=== PATIENT | female | born 1935 | race Caucasian/White ===

== ENCOUNTER → 2016-07-27 | Outpatient (CLI) | payer OTHER | LOC: FIMAGING 09:41 | DX: Z12.31 Encounter for screening mammogram for malignant neoplasm of breast (principal); Z80.3 Family history of malignant neoplasm of breast | CPT/HCPCS: G0202 ==

== ENCOUNTER 2016-08-21 14:34 | Emergency (ER) | payer OTHER ==
[2016-08-21 14:43] VITALS: RESP 18
[2016-08-21] MEDS ORDERED: IPRATROPIUM/ALBUTEROL 3 ML DEYVIAL IH ONE (14:56)
--- NOTE | 2016-08-21 15:01 | EDPHY ---
H & P Stated Complaint: Sent to ED for CT to [facility] ddimer;dry cough x 3 days HPI/ROS: HPI CHIEF COMPLAINT: Shortness of breath, wheezing HISTORY OF PRESENT ILLNESS: This patient is a very pleasant 81-year-old female significant past medical history for coronary artery disease with 5 vessel bypass, ascending aortic aneurysm, asthma, history of heart failure, wears 2 L of oxygen at night, presents emergency room with 3 days of progressively worsening wheezing, dry cough, nonproductive however did have 1 episode of hemoptysis this morning. She decided to go to her primary care doctor over there and blood work she had a positive D-dimer was referred here to the emergency room for CT angiogram. Upon arrival here in the emergency room she appears well nontoxic no acute distress. Oxygen saturation reviewed. She is wheezing on exam. Past Medical History: Hypertension, asthma, heart failure, 2 L of oxygen at night, 5 vessel bypass Past Surgical History: CABG Social History: Denies daily use of drugs alcohol tobacco products Family History: Noncontributory ROS REVIEW OF SYSTEMS: A comprehensive 10 point review of systems is otherwise negative aside from elements mentioned in the history of present illness. Exam Constitutional appears well nontoxic, triage nursing summary reviewed, vital signs reviewed, awake/alert. Eyes normal conjunctivae and sclera, EOMI, PERRLA. HENT normal inspection, atraumatic, moist mucus membranes, no epistaxis, neck supple/ no meningismus, no raccoon eyes. Respiratory decreased breath sounds bilaterally, audible wheezing, bronchitic sounding breath sounds Cardiovascular rate normal, regular rhythm, no murmur, no edema, distal pulses normal. Gastrointestinal soft, non-tender, no rebound, no guarding, normal bowel sounds, no distension, no pulsatile mass. Genitourinary no CVA tenderness. Musculoskeletal no midline vertebral tenderness, full range of motion, no calf swelling, no tenderness of extremities, no meningismus, good pulses, neurovascularly intact. Skin pink, warm, & dry, no rash, skin atraumatic. Neurologic awake, alert and oriented x 3, AAOx3, moves all 4 extremities equally, motor intact, sensory intact, CN II-XII intact, normal cerebellar, normal vision, normal speech. Psychiatric normal mood/affect. Heme/Lymph/Immune no lymphadenopathy. Differential Diagnosis: Includes but is not limited to in a particular order, acute asthma exacerbation, bronchitis, viral pneumonia, bacterial pneumonia, CHF , pulmonary embolism Medical Decision Making: Plan for patient IV establishment, blood work, EKG, CT angiogram due to outside positive D-dimer. DuoNeb breathing treatments steroids. Re-evaluation: EKG interpretation by me on record in [employer] system. Impression time of EKG 1516 sinus rhythm rate of 57, isolated T-wave inversions V1 V2 nonspecific, otherwise unremarkable EKG. No acute ischemia. CT scan of the angio chest. The results of the study are negative for pulmonary embolism or aortic dissection. The study was read by Dr. Torres I viewed the images myself on the PACS system. 1713: Patient resting comfortably. Feels better after DuoNeb breathing treatment Solu-Medrol. CT scan reviewed shows no PE. Blood work reassuring. No pneumonia. Will treat for bronchitis. No evidence of acute heart failure. 1718: re-examination patient feels comfortable going home. Prescription given for azithromycin, albuterol, prednisone. Strict return precautions given. She is well comfortable this plan at bedside updated. Source: Patient - Personal History Current Tetanus Diphtheria and Acellular Pertussis (TDAP): Yes - Medical/Surgical History Hx Asthma: Yes Hx Diabetes: Yes Hx Cardiac Disease: Yes Other PMH: CABG, HTN, - Social History Smoking Status: Never smoked Constitutional: Initial Vital Signs Heart Rate 68 08/21/16 14:40 Respiratory Rate 18 08/21/16 14:40 Blood Pressure 168/72 H 08/21/16 14:40 O2 Sat (%) 94 08/21/16 14:40 O2 Delivery Mode Room Air Allergies/Adverse Reactions: Sulfa (Sulfonamide Antibiotics) Allergy (Mild, Verified 08/21/16 14:43) "makes me dizzy" Home Medications: Medication Instructions Recorded AZITHROMYCIN [Z-PACK] 250 mg PO DAILY #6 tab 08/21/16 Albuterol [Proventil Inhaler HFA 1 - 2 puffs IH Q4H #1 mdi 08/21/16 (*)] Amitriptyline HCl [Elavil 10 mg 10 mg PO TID 08/21/16 (*)] Amlodipine Besylate [Norvasc] 5 mg PO 08/21/16 Beclomethasone Qvar 40 [Qvar 40 1 puffs IH BID 08/21/16 (*)] Carvedilol [Coreg (*)] 6.25 mg PO BIDMEAL 08/21/16 Furosemide [Lasix 20 MG (*)] 20 mg PO 08/21/16 Losartan Potassium [Cozaar 25 mg 25 mg PO 08/21/16 (*)] Oxybutynin Chloride [Ditropan 5mg 5 mg PO 08/21/16 (RX)] Potassium Chloride [Klor-Con 8] 8 meq PO 08/21/16 clonazePAM [Klonopin (*)] 0.5 mg PO 08/21/16 predniSONE 60 mg PO DAILY #15 tab 08/21/16 Medical Decision Making - Data Points Laboratory Results: Laboratory Results 08/21/16 15:13 08/21/16 15:13 08/21/16 08/21/16 08/21/16 15:13 15:13 15:13 WBC 6.48 10^3/uL 10^3/uL (3.80-9.50) RBC 4.63 10^6/uL 10^6/uL (4.18-5.33) Hgb 13.0 g/dL g/dL (12.6-16.3) Hct 39.4 % % (38.0-47.0) MCV 85.1 fL fL (81.5-99.8) MCH 28.1 pg pg (27.9-34.1) MCHC 33.0 g/dL g/dL (32.4-36.7) RDW 13.2 % % (11.5-15.2) Plt Count 227 10^3/uL 10^3/uL (150-400) MPV 9.4 fL fL (8.7-11.7) Neut % (Auto) 54.5 % % (39.3-74.2) Lymph % (Auto) 29.0 % % (15.0-45.0) [place] % (Auto) 9.0 % % (4.5-13.0) Eos % (Auto) 6.3 % % (0.6-7.6) Baso % (Auto) 0.9 % % (0.3-1.7) Nucleat RBC Rel Count 0.0 % % (0.0-0.2) Absolute Neuts (auto) 3.53 10^3/uL 10^3/uL (1.70-6.50) Absolute Lymphs (auto) 1.88 10^3/uL 10^3/uL (1.00-3.00) Absolute Monos (auto) 0.58 10^3/uL 10^3/uL (0.30-0.80) Absolute Eos (auto) 0.41 10^3/uL H 10^3/uL (0.03-0.40) Absolute Basos (auto) 0.06 10^3/uL 10^3/uL (0.02-0.10) Absolute Nucleated RBC 0.00 10^3/uL 10^3/uL (0-0.01) Immature Gran % 0.3 % % (0.0-1.1) Immature Gran # 0.02 10^3/uL 10^3/uL (0.00-0.10) PT 14.1 SEC SEC (12.0-15.0) INR 1.10 (0.83-1.16) APTT 30.2 SEC SEC (23.0-38.0) D-Dimer 0.63 ug/mLFEU H ug/mLFEU (0.00-0.50) Sodium 138 mEq/L mEq/L (134-144) Potassium 3.7 mEq/L mEq/L (3.5-5.2) Chloride 99 mEq/L mEq/L (97-110) Carbon Dioxide 29 mEq/l mEq/l (22-31) Anion Gap 10 mEq/L mEq/L (8-16) BUN 15 mg/dL mg/dL (7-23) Creatinine 0.9 mg/dL mg/dL (0.6-1.0) Estimated GFR > 60 Glucose 106 mg/dL H mg/dL (70-100) Calcium 8.9 mg/dL mg/dL (8.5-10.4) Troponin I < 0.012 ng/mL ng/mL (0-0.034) NT-Pro-B Natriuret Pep 793 pg/mL H pg/mL (0-450) Medications Given: Discontinued Medications Albuterol/Ipratropium (Duoneb) 3 ml IH EDNOW ONE Stop: 08/21/16 14:57 Last Admin: 08/21/16 15:11 Dose: 3 ml Sodium Chloride (Ns) 1,000 mls @ 0 mls/hr IV ONCE ONE PRN Reason: Wide Open Stop: 08/21/16 15:03 Last Admin: 08/21/16 15:35 Dose: 1,000 mls Methylprednisolone Sodium Succinate (Solu-Medrol) 125 mg IVP EDNOW ONE Stop: 08/21/16 15:08 Last Admin: 08/21/16 15:35 Dose: 125 mg Departure - Departure Disposition: Home, Routine, Self-Care Clinical Impression: Acute bronchitis Qualifiers: Bronchitis organism: other organism Qualified Code(s): J20.8 - Acute bronchitis due to other specified organisms Condition: Good Instructions: Acute Bronchitis (ED), Bronchospasm (ED), Wheezing (ED) Additional Instructions: 1. Stay well-hydrated drink lots of fluids. 2. Return emergency room if worsening shortness of breath high fever chest pain. 3. take steroids for the next 5 days. 4.Please follow up with her primary care doctor. Referrals: Juancarlos Paulino DO [Primary Care Provider] - As per Instructions Prescriptions: Albuterol [Proventil Inhaler HFA (*)] 1 - 2 puffs IH Q4H #1 mdi AZITHROMYCIN [Z-PACK] 250 mg PO DAILY #6 tab predniSONE 60 mg PO DAILY #15 tab
[2016-08-21] MEDS ORDERED: NS 1,000 ML IV ONE (15:02)
[2016-08-21] MEDS ORDERED: methylPREDNISolone SOD SUCC 125 MG/2 ML VIAL IVP ONE (15:07)
[2016-08-21 15:17] LABS: % IMMATURE GRANULYOCYTES 0.3 % (0.0-1.1); ABSOLUTE IMMATURE GRANULOCYTES 0.02 10^3/uL (0.00-0.10); ADD DIFF? NO; ADD MORPH? NO; ADD SCAN? NO; ATYPICAL LYMPHOCYTE FLAG 30 (0-99); FRAGMENT RBC FLAG 0 (0-99); HEMATOCRIT 39.4 % (38.0-47.0); LEFT SHIFT FLG 0 (0-99); LIPEMIA HEMOLYSIS FLAG 80 (0-99); MEAN CELL HEMOGLOBIN 28.1 pg (27.9-34.1); MEAN CELL VOLUME 85.1 fL (81.5-99.8); MEAN PLATELET VOLUME 9.4 fL (8.7-11.7); PLATELET CLUMPS FLAG 10 (0-99); PLATELET COUNT 227 10^3/uL (150-400); RED BLOOD CELL COUNT 4.63 10^6/uL (4.18-5.33); RED CELL DISTRIBUTION WIDTH 13.2 % (11.5-15.2)
--- NOTE | 2016-08-21 15:17 | CPEKG ---
Heart Rate: 57 RR Interval: 1053 P-R Interval: 172 QRSD Interval: 92 QT Interval: 428 QTC Interval: 417 P [place]: 69 QRS [place]: 23 T Wave [place]: 87 EKG Severity - NORMAL ECG - EKG Impression: SINUS RHYTHM Electronically Signed By: Shaheen Beltran 21-Aug-2016 22:24:26
[2016-08-21 15:28] LABS: INR 1.1 (0.83-1.16); PROTIME(PATIENT) 14.1 SEC (12.0-15.0)
[2016-08-21 15:29] LABS: APTT 30.2 SEC (23.0-38.0)
[2016-08-21 15:50] LABS: ANION GAP 10 mEq/L (8-16); CALCIUM 8.9 mg/dL (8.5-10.4); CARBON DIOXIDE 29 mEq/l (22-31); CHLORIDE 99 mEq/L (97-110); CREATININE 0.9 mg/dL (0.6-1.0); GLOMERULAR FILTRATION RATE > 60; GLUCOSE 106 mg/dL (70-100); POTASSIUM 3.7 mEq/L (3.5-5.2); SODIUM 138 mEq/L (134-144)
[2016-08-21] MEDS ORDERED: IOPAMIDOL (ISOVUE 370) 100 ML BTL IV ONE (15:58)
[2016-08-21 16:03] LABS: TROPONIN I < 0.012 ng/mL (0-0.034)
[2016-08-21 17:26] VITALS: BP 145/62; PULSE 78; TEMP 98.2; O2SAT 93
== END 2016-08-21 17:26 | disposition home or self-care (01) ==
DX: J20.8 Acute bronchitis due to other specified organisms (principal); I10 Essential (primary) hypertension; J45.909 Unspecified asthma, uncomplicated; I25.810 Atherosclerosis of coronary artery bypass graft(s) without angina pectoris; E11.9 Type 2 diabetes mellitus without complications
CPT/HCPCS: 71275; 93005; 96361; 96374; 99285; Q9967

== ENCOUNTER → 2016-08-21 | Outpatient (CLI) | payer OTHER | LOC: CIMAGING 11:51 | PROVIDERS: ATTEND Family Medicine | DX: R05 Cough (principal); R06.02 Shortness of breath | CPT/HCPCS: 71020-PO ==

== ENCOUNTER → 2016-10-16 | Outpatient (CLI) | payer OTHER | LOC: FIMAGING 13:29 | PROVIDERS: ATTEND Family Medicine | DX: Z13.820 Encounter for screening for osteoporosis (principal); M81.0 Age-related osteoporosis without current pathological fracture; Z78.0 Asymptomatic menopausal state ==

== ENCOUNTER 2017-02-07 12:00 | Emergency (ER) | payer OTHER ==
--- NOTE | 2017-02-07 12:13 | CPEKG ---
Heart Rate: 61 RR Interval: 984 P-R Interval: 168 QRSD Interval: 90 QT Interval: 436 QTC Interval: 440 P Marceline: 80 QRS Marc[place]: 26 T Wave Marceline: 71 EKG Severity - NORMAL ECG - EKG Impression: SINUS RHYTHM Electronically Signed By: Kevon Patel 07-Feb-2017 12:55:27
[2017-02-07 12:20] VITALS: BP 171/65; PULSE 61; RESP 18; TEMP 98.1; O2SAT 95
--- NOTE | 2017-02-07 12:24 | EDPHY ---
H & P Stated Complaint: chest pressure and left arm pain for 1 week Time Seen by Provider: 02/07/17 12:15 HPI/ROS: CHIEF COMPLAINT: Chest pressure, left arm discomfort HISTORY OF PRESENT ILLNESS: The patient is brought to the emergency department by her grouter helper for evaluation of a 1 week history of chest pressure and left arm discomfort. The symptoms have been occurring independent of one another. The patient admits she is under fair amount of stress secondary to her being hospitalized with serious illness. The patient has a history of 5 vessel CABG in thoracic aortic aneurysm repair in 2012. She has had an unremarkable echocardiogram in August of this year per her report. The patient does not believe she has had a stress test performed since her CABG. The patient states her symptoms are occurring at rest tender not precipitated by exertion. The patient denies asymmetric calf pain or swelling. She denies fever, cough or congestion. She denies additional complaints. REVIEW OF SYSTEMS: A comprehensive 10 point review of systems is otherwise negative aside from elements mentioned in the history of present illness. Source: Patient Exam Limitations: No limitations - Medical/Surgical History Hx Asthma: Yes Hx Diabetes: Yes Hx Cardiac Disease: Yes Other PMH: CABG, HTN, diabetic type 2, asthma, osteoporosis, arthritis, barry, hyst - Social History Smoking Status: Never smoked - Physical Exam Exam: General Appearance: Alert, no distress Eyes: Pupils equal and round no pallor or injection ENT, Mouth: Mucous membranes moist Respiratory: There are no retractions, lungs are clear to auscultation Cardiovascular: Regular rate and rhythm Gastrointestinal: Abdomen is soft and nontender, no masses, bowel sounds normal Neurological: A&O, normal motor function, normal sensory exam, normal cranial nerves Skin: Warm and dry, no rashes Musculoskeletal: Neck is supple nontender Extremities: symmetrical, full range of motion Constitutional: Initial Vital Signs Temperature (C) 36.7 C 02/07/17 12:16 Heart Rate 61 02/07/17 12:16 Respiratory Rate 18 02/07/17 12:16 Blood Pressure 171/65 H 02/07/17 12:16 O2 Sat (%) 95 02/07/17 12:16 O2 Delivery Mode Room Air Allergies/Adverse Reactions: Sulfa (Sulfonamide Antibiotics) Allergy (Mild, Verified 02/07/17 12:15) "makes me dizzy" Home Medications: Medication Instructions Recorded Albuterol [Proventil Inhaler HFA 1 - 2 puffs IH Q4H #1 mdi 08/21/16 (*)] Amlodipine Besylate [Norvasc] 5 mg PO 08/21/16 Beclomethasone Qvar 40 [Qvar 40 1 puffs IH BID 08/21/16 (*)] Carvedilol [Coreg (*)] 6.25 mg PO BIDMEAL 08/21/16 Furosemide [Lasix 20 MG (*)] 20 mg PO 08/21/16 Losartan Potassium [Cozaar 25 mg 25 mg PO 08/21/16 (*)] Potassium Chloride [Klor-Con 8] 8 meq PO 08/21/16 clonazePAM [Klonopin (*)] 0.5 mg PO 08/21/16 Medical Decision Making - Diagnostics EKG Interpretation: EKG: Complete interpretation has been separately recorded in the [email or web address] archive. Summary impression: Sinus rhythm, no ST segment elevation or depression. ED Course/Re-evaluation: The patient is referred to the emergency department by her grouter helper for troponin testing. She has a history of coronary artery disease status post CABG 2012. The patient has been having some atypical symptoms of chest pain over the past week. Her is currently hospitalized to [facility] and she attributes her symptoms to stress. The patient denies any history of exertional chest pain or shortness of breath. She has had episodic chest pressure and some vague pain in her left arm. The patient currently is asymptomatic. Her EKG demonstrates no evidence of ischemia. The patient's troponin is within normal limits. I reviewed the patient's past medical records. The case was discussed with her regular grouter helper Dr. Anders who will follow up with the patient to schedule a stress test for further risk stratification. The patient understands to return to the ED for markedly worsening chest pain, shortness of breath, worsening symptoms or other concerns. Differential Diagnosis: Differential diagnosis considered includes myocardial infarction, anxiety, arrhythmia, - Data Points Laboratory Results: 02/07/17 12:15 Troponin I < 0.012 ng/mL ng/mL (0.000-0.034) Departure - Departure Disposition: Home, Routine, Self-Care Clinical Impression: Chest pain Condition: Good Instructions: Chest Pain (ED) Additional Instructions: 1. Your troponin test is within normal limits. 2. Please schedule a follow-up appointment with your regular grouter helper for a recheck within the next week. Additional testing including including a stress test may be indicated. 3. It is imperative you return to the ED immediately for any worsening chest pain or shortness of breath. While your workup today demonstrates no evidence of an obvious heart attack further testing is indicated for complete evaluation of your symptoms. Referrals: Antonia Chavira MD [Primary Care Provider] - As per Instructions Kyle Anders MD [Medical Doctor] - As per Instructions
== END 2017-02-07 13:38 | disposition home or self-care (01) ==
LOC: CED 12:00
DX: R07.9 Chest pain, unspecified (principal); I25.810 Atherosclerosis of coronary artery bypass graft(s) without angina pectoris; J45.909 Unspecified asthma, uncomplicated; I10 Essential (primary) hypertension; E11.9 Type 2 diabetes mellitus without complications
CPT/HCPCS: 84484-PO

== ENCOUNTER → 2017-08-19 | Outpatient (CLI) | payer OTHER | LOC: FIMAGING 11:55 | PROVIDERS: ATTEND Family Medicine | DX: Z12.31 Encounter for screening mammogram for malignant neoplasm of breast (principal); R92.2 Inconclusive mammogram ==

== ENCOUNTER → 2017-09-05 | Outpatient (CLI) | payer OTHER | LOC: FIMAGING 12:54 | PROVIDERS: ATTEND Family Medicine | DX: N60.12 Diffuse cystic mastopathy of left breast (principal) ==

== ENCOUNTER → 2018-04-10 | Outpatient (CLI) | payer OTHER | LOC: CIMAGING 10:19 | PROVIDERS: ATTEND Family Medicine | DX: R60.0 Localized edema (principal) | CPT/HCPCS: 93971-PO ==

== ENCOUNTER → 2018-05-25 | Outpatient (CLI) | payer OTHER | LOC: FIMAGING 10:44 | PROVIDERS: ATTEND Internal Medicine Pulmonary Disease | DX: J45.909 Unspecified asthma, uncomplicated (principal); J96.11 Chronic respiratory failure with hypoxia; R05 Cough; G47.33 Obstructive sleep apnea (adult) (pediatric); D64.9 Anemia, unspecified; J31.0 Chronic rhinitis; J42 Unspecified chronic bronchitis ==